=== PATIENT | male | born 1950 | race Caucasian/White ===

== ENCOUNTER → 2018-08-13 09:27 | Outpatient (CLI) | payer MEDICARE, OTHER, SELFPAY ==
--- NOTE | 2018-08-13 | CA_ITS ---
PROCEDURE: 2-D M-mode and color Doppler study INDICATIONS FOR THE TEST: Chest pain+ COPD+ Heart Murmur Tobacco Smokingex Palpitations+ Fatigue+ Syncope Edema+ Hypertension Diabetes Mellitus Rheumatic Fever SOB+AMADOR Obesity Hyperlipidemia Family History HD+ Additional History breaks out in cold sweats with no activity PATIENT INFORMATION HEIGHT: 70 WEIGHT: 235 GENDER: Male B/P: 170/60 2-D/M-MODE INTERPRETATION: 2-D MEASUREMENTS OBSERVED VALUES IN CMS Right Ventricular Dimension (RVDd) 2.0 Interventricular Septum (Thickness)(IVsd) 0.9 Left Ventricular Internal Dimensions(LVIDd) 4.8 Left Ventricular Posterior Wall (Thickness)(LVPWd) 1.0 Aortic Root 3.3 Aortic Cusp Separation 2.4 Left Atrial Dimensions (LAD) 4.5 2D 1. Technically difficult study because of the patient's factor and poor acoustic windows 2. Left atrium is mildly enlarged, left ventricle is normal size, there is no concentric left ventricular hypertrophy, visually estimated ejection fraction approximately 45%, there appears to be moderate hypokinesis involving the posterolateral wall. Repeat study with definitely contrast is recommended as endocardial surface of poorly visualized. 3. The right atrium and right ventricle are normal size and contractility. 4. The aortic valve is minimally thickened and fibrosed. 5. The mitral and tricuspid valvular grossly normal. 6. The pulmonic valve is poorly visualized. 7. No significant pericardial effusion noted. DOPPLER INTERROGATION: Doppler interrogation of the aortic, mitral and tricuspid valvular presence of mild mitral and tricuspid regurgitation, tricuspid regurgitation jet velocity is inadequate for calculation of the right ventricular systolic pressure, grade 1 diastolic dysfunction seen without tissue Doppler evidence of raised left atrial pressure. CONCLUSION: 1. Technically difficult because of the patient's factor and poor acoustic 2. Normal left ventricular size, there is no concentric left ventricular hypertrophy, visually estimated ejection fraction of 45% with segmental wall motion abnormality described above, a repeat study with Definity contrast is recommended. Grade 1 diastolic dysfunction seen without tissue Doppler evidence of raised left atrial pressure. 3. Mild mitral and tricuspid regurgitation 4. No significant pericardial effusion noted.
--- NOTE | 2018-08-13 09:34 | XR_ITS ---
XR chest 2V HISTORY: ITS.REASON: SOB,COPD ORDERING PHYSICIAN: Severino Gutierrez PATIENT AGE: 68 years COMPARISON: 01/23/2014 FINDINGS: The cardiomediastinal silhouette and pulmonary vascularity are within normal limits. There is some patchy density left lung base. This may be related to some chronic scarring. Underlying atelectasis or infiltrate is also a consideration. The remaining lungs are clear. There is some pleural thickening in the right lung base laterally.. Postsurgical changes of the right sixth and seventh ribs. COPD. Mild kyphosis. IMPRESSION: 1. COPD with postsurgical change. 2. Patchy density left lung base which may be due to an area of fibrosis, atelectasis, or patchy infiltrate. Follow-up suggested to confirm stability
== END ==
PROVIDERS: PCP Internal Medicine; Visit Provider Internal Medicine
DX: R06.02 Shortness of breath (principal); R60.9 Edema, unspecified; J44.9 Chronic obstructive pulmonary disease, unspecified
CPT/HCPCS: 71046; 93306; 94060

== ENCOUNTER → 2018-08-23 13:18 | Outpatient (CLI) | payer MEDICARE, OTHER, SELFPAY ==
--- NOTE | 2018-08-23 | CA_ITS ---
PROCEDURE: Limited contrast study INDICATIONS FOR THE TEST: Chest pain+ COPD Heart Murmur Tobacco Smoking Palpitations Fatigue Syncope Edema+ Hypertension Diabetes Mellitus Rheumatic Fever SOB+AMADOR Obesity Hyperlipidemia Family History HD Additional History DEFINITY ONLY PATIENT INFORMATION HEIGHT: 70 WEIGHT:235 GENDER: Male B/P:125/69 2-D/M-MODE INTERPRETATION: 2-D MEASUREMENTS OBSERVED VALUES IN CMS Right Ventricular Dimension (RVDd) Interventricular Septum (Thickness)(IVsd) Left Ventricular Internal Dimensions(LVIDd) Left Ventricular Posterior Wall (Thickness)(LVPWd) Aortic Root Aortic Cusp Separation Left Atrial Dimensions (LAD) 2D DOPPLER INTERROGATION: CONCLUSION: Doppler contractility gated the endocardial surfaces, over IS a left ventricular systolic function, there appears to be a discrete wall motion abnormality involving the anterolateral wall.
== END ==
PROVIDERS: PCP Internal Medicine; Visit Provider Internal Medicine
DX: R06.02 Shortness of breath (principal); J44.9 Chronic obstructive pulmonary disease, unspecified; R55 Syncope and collapse; R53.83 Other fatigue
CPT/HCPCS: 93306

== ENCOUNTER → 2018-09-14 07:38 | Outpatient (CLI) | payer MEDICARE, OTHER, SELFPAY ==
--- NOTE | 2018-09-14 07:44 | NM_ITS ---
History:Chest pain, SOB, Palpitations, Syncope, Fatigue, Abnormal ECHO Procedure: Patient received a 0.4 mg of intravenous Lexiscan, resting heart rate 72 bpm, resting blood pressure 152/85, with Lexiscan maximum heart rate achieve was 99 bpm which is less than85 % of the maximum predicted heart rate and blood pressure was 136/84. WIth Lexiscan patient denied any complained of chest pain. Electrocardiogram: Resting electrocardiogram showed sinus rhythm, with Lexiscan there is 1.5mm ST segment depression noted from the baseline EKG. The EKG portion of the Lexiscan Myoview is nondiagnostic. Cardias Stress and Resting SPECT images: Cardias Stress and Resting SPECT images were obtained using technetium 99m Myoview 32.6 mCi stress and 10.49 mCi at rest. Gated SPECT further analysis of segmental wall motion and calculation of ejection fraction also done. Cardiac stress and resting SPECT show uniform myocardial activity without segmental perfusion abnormality, the computer derived ejection fraction is 46% with no regional wall motion abnormality Conclusion: 1. The EKG portion of the Lexiscan Myoview is nondiagnostic. 2. No scintigraphic evidence of reversible ischemia seen, computer derived ejection fraction is 46% with no regional wall motion abnormality. 3. Normal Lexiscan Myoview study.
--- NOTE | 2018-09-14 08:37 | HMH.ITSHM ---
Current Home Medications as stated by this patient Jerrell Finley or sales representative meats. []OXYCODONE BREO PROAIR NEBULIZER LAXATIVE STOOL SOFTNER MULTIVITAMIN IBUPROFEN DEPO-TESTOSTERONE SUMATRIPTAN
== END ==
PROVIDERS: PCP Internal Medicine; Visit Provider Internal Medicine
DX: R07.9 Chest pain, unspecified (principal); R06.09 Other forms of dyspnea; R94.39 Abnormal result of other cardiovascular function study
CPT/HCPCS: 78452; 93017; A9502; J2785

== ENCOUNTER → 2019-07-27 09:41 | Outpatient (CLI) | payer MEDICARE, OTHER, SELFPAY ==
[2019-07-27 10:22] LABS: Basophils # 0.1 K/mm3 (0-0.2); Eosinophils # 0.1 K/mm3 (0.0-0.4); Lymphocytes # 1.5 K/mm3 (0.7-4.5); Mean Platelet Volume 7.1 fl (7.4-10.4); Monocytes # 0.4 K/mm3 (0.1-1.0)
[2019-07-27 10:38] LABS: Lymphocytes % 21.6 % (10-50); Mean Corpuscular HGB Conc 33.5 g/dL (31.8-35.4); Mean Corpuscular Hemoglobin 30.9 pg (27.0-31.2); Mean Corpuscular Volume 92.3 fl (80-94); Monocytes % 5.6 % (1.7-9.3); Neutrophils # 4.8 K/mm3 (1.8-7.8); Neutrophils % 69.8 % (37.0-80.0); Platelet Count 228 K/mm3 (142-424); Red Blood Count 6.73 M/mm3 (4.60-6.20); Red Cell Distribution Width 14.2 % (11.5-17.5); White Blood Count 6.9 K/mm3 (4.8-10.8)
[2019-07-27 10:42] LABS: Hematocrit 62.1 % (42.0-52.0); Hemoglobin 20.8 g/dL (14.1-18.0)
[2019-07-27 11:07] LABS: Alanine Aminotransferase 21 U/L (12-78); Albumin Level 4.7 g/dl (3.5-5.0); Albumin/Globulin Ratio 1.8 (1.1-1.8); Alkaline Phosphatase 64 U/L (38-126); Anion Gap 10.2 mEq/L (5-15); Aspartate Amino Transferase 28 U/L (17-59); Bilirubin,Total 0.5 mg/dl (0.2-1.3); Blood Urea Nitrogen 11 mg/dl (9-20); Calcium 9.1 mg/dl (8.4-10.2); Carbon Dioxide 34 mmol/L (22.0-30.0); Chloride 100 mmol/L (98-107); Chol/HDL Ratio 3.3 (1-3.5); Cholesterol 146 mg/dl (140-200); Estimated Glomerular Filt Rate 67 ml/min (>60); GFR (African American) 81 ML/MIN (>60); Globulin 2.6 g/dL (1.3-3.2); Glucose 97 mg/dl (74-100); HDL Cholesterol 44 mg/dl (40-60); Potassium 4.2 mmoL/L (3.5-5.1); Sodium 140 mmol/L (136-145); Total Protein,Serum 7.3 g/dl (6.3-8.2); Triglycerides 96 mg/dl (30-150); VLDL Cholesterol 19 mg/dL (0-40)
[2019-07-27 11:18] LABS: Direct LDL Cholesterol 108.98 mg/dL (100-129)
[2019-07-27 11:38] LABS: Prostate Specific Ag, Diagnost 2.89 ng/ml (0.0-4.0)
[2019-07-31 10:40] LABS: Testosterone,Free 14.1 pg/mL (6.6-18.1)
== END ==
PROVIDERS: Visit Provider Internal Medicine
DX: E78.5 Hyperlipidemia, unspecified (principal); J44.9 Chronic obstructive pulmonary disease, unspecified; N40.1 Benign prostatic hyperplasia with lower urinary tract symptoms
CPT/HCPCS: 36415; 80053; 80061; 84153; 84402; 85025

== ENCOUNTER 2019-07-29 13:30 | Outpatient (CLI) | payer MEDICARE, OTHER, SELFPAY | END 2019-07-29 14:30 | disposition home or self-care (01) | LOC: INF 13:41 | PROVIDERS: PCP Internal Medicine; Visit Provider Internal Medicine | DX: D75.1 Secondary polycythemia (principal); J44.9 Chronic obstructive pulmonary disease, unspecified | CPT/HCPCS: 99195 ==

== ENCOUNTER 2019-08-05 12:35 | Outpatient (CLI) | payer MEDICARE, OTHER, SELFPAY ==
[2019-08-05 12:37] VITALS: BMI 30.4
[2019-08-05 12:56] LABS: Hemoglobin 19.3 g/dL (14.1-18.0)
--- NOTE | 2019-08-05 14:37 | PC.NURSE ---
1320 BP 165/97, HR 88, temp 97.8, resp 18, O2 sat 100% room air. Therapeutic phlebotomy initiated per hatchery laborer. 1340 Therapeutic phlebotomy complete/ VSS, BP 125/83, HR 89, resp 18, O2 sat 99%, temp 97.8. Pt denies c/o. No problems noted. IV discontinued and pt discharged home/stable.
== END 2019-08-05 13:45 | disposition home or self-care (01) ==
LOC: INF 12:35
PROVIDERS: Visit Provider Internal Medicine
DX: D75.1 Secondary polycythemia (principal); J44.9 Chronic obstructive pulmonary disease, unspecified
CPT/HCPCS: 36415; 85014; 85018; 99195

== ENCOUNTER → 2019-08-09 11:07 | Outpatient (CLI) | payer MEDICARE, OTHER, SELFPAY | PROVIDERS: PCP Internal Medicine; Visit Provider Internal Medicine | DX: R06.02 Shortness of breath (principal); J44.9 Chronic obstructive pulmonary disease, unspecified | CPT/HCPCS: 94762 ==

== ENCOUNTER 2019-08-12 11:50 | Outpatient (CLI) | payer MEDICARE, OTHER, SELFPAY ==
[2019-08-12 11:55] VITALS: BMI 30.4
[2019-08-12 12:20] LABS: Hematocrit 53.9 % (42.0-52.0)
[2019-08-12 12:24] LABS: Hemoglobin 19.1 g/dL (14.1-18.0)
== END 2019-08-12 13:10 | disposition home or self-care (01) ==
LOC: INF 11:54
PROVIDERS: Visit Provider Internal Medicine
DX: D75.1 Secondary polycythemia (principal); J44.9 Chronic obstructive pulmonary disease, unspecified
CPT/HCPCS: 36415; 85014; 85018; 99195

== ENCOUNTER 2019-08-19 12:04 | Outpatient (CLI) | payer MEDICARE, OTHER, SELFPAY ==
[2019-08-19 12:04] VITALS: BMI 30.4
[2019-08-19 12:34] LABS: Hematocrit 53.1 % (42.0-52.0); Hemoglobin 18.6 g/dL (14.1-18.0)
[2019-08-19 12:50] VITALS: BP 143/86; PULSE 68; RESP 20; TEMP 36.9; O2SAT 95
[2019-08-19 13:35] VITALS: BP 145/74; PULSE 68; RESP 20; TEMP 36.9; O2SAT 95
== END 2019-08-19 13:35 | disposition home or self-care (01) ==
LOC: INF 12:04
PROVIDERS: Visit Provider Internal Medicine
DX: D75.1 Secondary polycythemia (principal); J44.9 Chronic obstructive pulmonary disease, unspecified
CPT/HCPCS: 85014; 85018; 99195

== ENCOUNTER 2019-08-26 10:43 | Outpatient (CLI) | payer MEDICARE, OTHER, SELFPAY ==
[2019-08-26 10:41] VITALS: BMI 30.4
[2019-08-26 11:05] LABS: Hematocrit 54.2 % (42.0-52.0)
[2019-08-26 11:06] LABS: Hemoglobin 18.5 g/dL (14.1-18.0)
[2019-08-26 11:20] VITALS: BP 120/88; PULSE 68; RESP 20; TEMP 36.9; O2SAT 95
[2019-08-26 11:55] VITALS: BP 128/82; PULSE 84; RESP 20
== END 2019-08-26 11:55 | disposition home or self-care (01) ==
LOC: INF 10:43
PROVIDERS: Visit Provider Internal Medicine
DX: D75.1 Secondary polycythemia (principal); J44.9 Chronic obstructive pulmonary disease, unspecified
CPT/HCPCS: 85014; 85018; 99195

== ENCOUNTER 2019-09-02 10:55 | Outpatient (CLI) | payer MEDICARE, OTHER, SELFPAY ==
[2019-09-02 10:59] VITALS: BMI 30.4
[2019-09-02 11:24] LABS: Hematocrit 52.2 % (42.0-52.0); Hemoglobin 17.6 g/dL (14.1-18.0)
== END 2019-09-02 12:25 | disposition home or self-care (01) ==
LOC: INF 10:57
PROVIDERS: Visit Provider Internal Medicine
DX: D75.1 Secondary polycythemia (principal); J44.9 Chronic obstructive pulmonary disease, unspecified
CPT/HCPCS: 36415; 85014; 85018; 99195

== ENCOUNTER 2019-09-09 10:19 | Outpatient (CLI) | payer MEDICARE, OTHER, SELFPAY ==
[2019-09-09 10:21] VITALS: BMI 30.7
[2019-09-09 10:41] LABS: Hematocrit 48.3 % (42.0-52.0); Hemoglobin 16.7 g/dL (14.1-18.0)
[2019-09-09 10:45] VITALS: BP 120/74; PULSE 83; RESP 18; TEMP 36.6; O2SAT 98
== END 2019-09-09 10:50 | disposition home or self-care (01) ==
LOC: INF 10:19
PROVIDERS: Visit Provider Internal Medicine
DX: D75.1 Secondary polycythemia (principal); J44.9 Chronic obstructive pulmonary disease, unspecified
CPT/HCPCS: 36415; 85014; 85018

== ENCOUNTER 2019-09-16 09:45 | Outpatient (CLI) | payer MEDICARE, OTHER, SELFPAY ==
[2019-09-16 09:51] VITALS: BMI 30.7
[2019-09-16 10:01] LABS: Hematocrit 53.3 % (42.0-52.0)
[2019-09-16 10:12] LABS: Hemoglobin 18.7 g/dL (14.1-18.0)
== END 2019-09-16 10:50 | disposition home or self-care (01) ==
LOC: INF 09:48
PROVIDERS: Visit Provider Internal Medicine
DX: J44.9 Chronic obstructive pulmonary disease, unspecified (principal)
CPT/HCPCS: 85014; 85018; 99195

== ENCOUNTER 2019-09-16 16:57 | Emergency (ER) | payer MEDICARE, OTHER, SELFPAY ==
--- NOTE | 2019-09-16 16:51 | ECG_ITS ---
APPROVED REPORT Exam: Resting ECG HR:109 bpm ECG Measurements Heart Rate 109 AXES [place] 140 P 56 QRSd 94 QRS 39 QT 332 T 49 QTc 447 <Conclusion> Sinus tachycardia Otherwise normal ECG Electronically signed by : Severino Gutierrez, 09/17/2019 08:44:54
[2019-09-16 16:59] VITALS: BP 142/100; PULSE 110; RESP 16; TEMP 36.6; O2SAT 98; BMI 30.7
--- NOTE | 2019-09-16 17:05 | XR_ITS ---
PROCEDURE: XR CHEST PORTABLE CLINICAL HISTORY: weakness COMPARISON: [facility] CT CHEST W/ CONTRAST from 06/27/2013 CXR CHEST(2 VIEWS-NOT PORTABLE) from 10/22/2013 CXR CHEST(2 VIEWS-NOT PORTABLE) from 12/22/2013 CXR CHEST(2 VIEWS-NOT PORTABLE) from 01/23/2014 FINDINGS: The cardiomediastinal silhouette and pulmonary vascularity are within normal limits. Surgical clips are present in the right midlung. Calcified granuloma left infrahilar region. Mild bibasilar atelectasis. No acute bony abnormalities. IMPRESSION: Mild bibasilar atelectasis Dictated by: Uday Burris MD 09/16/2019 17:25 Electronically signed by Uday Burris MD in [place] 09/16/2019 17:25
[2019-09-16 17:11] LABS: Basophils % 0.5 % (0.1-2.0); Eosinophils # 0.1 K/mm3 (0.0-0.4); Eosinophils % 1.3 % (0.1-12.0); Hematocrit 56.3 % (42.0-52.0); Lymphocytes # 2.1 K/mm3 (0.7-4.5); Mean Corpuscular HGB Conc 33.9 g/dL (31.8-35.4); Mean Corpuscular Hemoglobin 31.2 pg (27.0-31.2); Mean Corpuscular Volume 92.3 fl (80-94); Mean Platelet Volume 7.1 fl (7.4-10.4); Monocytes # 0.6 K/mm3 (0.1-1.0); Monocytes % 5.9 % (1.7-9.3); Neutrophils # 6.5 K/mm3 (1.8-7.8); Neutrophils % 70.3 % (37.0-80.0); Platelet Count 220 K/mm3 (142-424); Red Cell Distribution Width 12.8 % (11.5-17.5); White Blood Count 9.3 K/mm3 (4.8-10.8)
[2019-09-16 17:15] LABS: Hemoglobin 19.1 g/dL (14.1-18.0)
[2019-09-16 17:17] LABS: Anion Gap 14.2 mEq/L (5-15); Blood Urea Nitrogen 17 mg/dl (9-20); Calcium 8.7 mg/dl (8.4-10.2); Carbon Dioxide 31 mmol/L (22.0-30.0); Chloride 102 mmol/L (98-107); Creatinine Clearance Estimated 88 mL/min (50-200); Estimated Glomerular Filt Rate 67 ml/min (>60); GFR (African American) 81 ML/MIN (>60); Glucose 92 mg/dl (74-100); Potassium 4.2 mmoL/L (3.5-5.1); Sodium 143 mmol/L (136-145)
[2019-09-16 17:29] LABS: Troponin I < 0.01 ng/ml (0.00-0.034)
--- NOTE | 2019-09-16 19:01 | HMH.EDWEAK ---
ED Disposition Clinical Impression: Dehydration, Bronchitis Disposition: Home, Self-Care Condition on Discharge: Good Instructions: DI for Muscle Weakness, Acute Bronchitis Prescriptions: Azithromycin 250 mg PO DAILY 5 Days #6 tab Prescription Printed methylPREDNISolone [Medrol 4mg tab] 4 mg PO DIRECTED #21 tab Prescription Printed Referrals: Severino Gutierrez [Primary Care Provider] - - Critical Care Critical Care Time: No Attestation: On 09/16/19, the high probability of a clinically significant, sudden or life threatening deterioration of the following system(s) required my full and direct attention, intervention and personal management. The time I documented below is in addition to time spent performing reported procedures but includes the following listed in this critical care notation. Medical Decision Making - Medical Records Medical records reviewed: Yes: I reviewed the patient's medical records. - Kasi Inquiry Pt receiving controlled substance: No Vital Signs: 09/16/19 16:59 Temperature 98 F Temperature Source Oral Pulse Rate [Left Radial] 110 H Respiratory Rate 16 Blood Pressure [Right Arm] 142/100 H Blood Pressure Mean [Right Arm] 114 Blood Pressure Position [Right Arm] Sitting 02 Sat by Pulse Oximetry 98 Oxygen Delivery Method Room Air - Lab Data Lab results reviewed: Yes: I reviewed the patient's lab results. Lab Results 09/16/19 17:00: WBC 9.3, RBC 6.10, Hgb 19.1 H*, Hct 56.3 H, MCV 92.3, MCH 31.2, MCHC 33.9, RDW 12.8, Plt Count 220, MPV 7.1 L, Neut % (Auto) 70.3, Lymph % (Auto) 22.0, Mcdowell % (Auto) 5.9, Eos % (Auto) 1.3, Baso % (Auto) 0.5, Neut # (Auto) 6.5, Lymph # (Auto) 2.1, Mcdowell # (Auto) 0.6, Eos # (Auto) 0.1, Baso # (Auto) 0.0 09/16/19 17:00: Sodium 143, Potassium 4.2, Chloride 102, Carbon Dioxide 31 H, Anion Gap 14.2, BUN 17, Creatinine 1.10, Estimated Creat Clear 88, Estimated GFR 67, Est GFR ( Amer) 81, Glucose 92, Calcium 8.7, Troponin I < 0.01 Result diagrams: 09/16/19 17:00 09/16/19 17:00 Orders (Tests/Meds): ED MEDICATIONS Generic Name Dose Route Start Last Admin Trade Name Ariel PRN Reason Stop Dose Admin Sodium Chloride 1,000 mls @ 999 mls/hr 09/16/19 18:45 09/16/19 18:45 Sod Chlor 0.9% 1000ml Bag IV 09/16/19 19:45 999 mls/hr .Q1H1M CATHERINE Administration Ceftriaxone Sodium 1 gm/ 50 mls @ 100 mls/hr 09/16/19 19:00 Sodium Chloride IV 09/16/19 19:29 ONCE ONE Protocol ORDERS Category Date Time Status Troponin I Q3H Lab 09/16/19 20:15 Ordered Troponin I Q3H Lab 09/16/19 23:15 Ordered Urinalysis and Microscopic Stat Lab 09/16/19 17:04 Ordered - Radiology Data #1 Image(s): Chest Preliminary Findings: Abnormal (Mild atelectasis bibasilar) Weakness HPI - General Chief complaint: Weakness Stated complaint: weakness Time Seen by Provider: 09/16/19 19:01 Mode of Arrival: Ambulatory Limitations: No Limitations Description of Symptoms (Recalled from ER Triage Doc. by RN): to ed per pvt car with c/o generalized weakness, I just don't feel right pt states he had just had phlebotomy my blood is too thick pt c/o sob, denies any nausea, vomiting, chest pain, leg pain or sick contacts. - History of Present Illness HPI Narrative: 61-year-old male presents to the emergency department with just some generalized weakness. Patient does have polycythemia and does have frequent blood draws. Otherwise patient states he is at this, fatigue and mildly overt shortness of breath maybe for the last 3 or 4 days. He states he called his primary and his primary told to come to the emergency department become evaluated. Patient denies any pain. Patient denies any recent fever shakes or chills patient denies any malaise patient denies any cough but does have some mild shortness of breath. - Related Data Home Medications Medication Instructions Recorded Confirmed Albuterol Sulfate [Proair Hfa] 8.5 gm IH Q4HP
[2019-09-16 19:38] VITALS: BP 156/101; PULSE 91; RESP 16; TEMP 36.8; O2SAT 97
== END 2019-09-16 19:40 | disposition home or self-care (01) ==
PROVIDERS: Emergency Provider Family Medicine; PCP Internal Medicine
DX: E86.0 Dehydration (principal); J20.9 Acute bronchitis, unspecified; D75.1 Secondary polycythemia; Z79.899 Other long term (current) drug therapy
CPT/HCPCS: 71045; 80048; 84484; 85014; 85018; 85025; 93005; 96365; 96367; 99195; 99283

== ENCOUNTER 2019-09-23 09:59 | Outpatient (CLI) | payer MEDICARE, OTHER, SELFPAY ==
[2019-09-23 10:05] VITALS: BMI 30.7
[2019-09-23 10:24] LABS: Hematocrit 46.3 % (42.0-52.0); Hemoglobin 16.4 g/dL (14.1-18.0)
--- NOTE | 2019-09-23 11:02 | PC.NURSE ---
1020 H&H drawn per lab. Pt to receive therapeutic phlebotomy based on results.
--- NOTE | 2019-09-23 11:03 | PC.NURSE ---
1040 H&H 16.4/46.3 today, no therapeutic phlebotomy needed based on these results. patient will return Thu09/30/19
== END 2019-09-23 10:45 | disposition home or self-care (01) ==
LOC: INF 09:59
PROVIDERS: Visit Provider Internal Medicine
DX: D75.1 Secondary polycythemia (principal); Z51.81 Encounter for therapeutic drug level monitoring; Z79.01 Long term (current) use of anticoagulants
CPT/HCPCS: 85014; 85018

== ENCOUNTER 2019-09-30 10:00 | Outpatient (CLI) | payer MEDICARE, OTHER, SELFPAY ==
[2019-09-30 10:10] VITALS: BMI 30.7
[2019-09-30 10:26] LABS: Hematocrit 46.7 % (42.0-52.0); Hemoglobin 16.4 g/dL (14.1-18.0)
== END 2019-09-30 10:35 | disposition home or self-care (01) ==
LOC: INF 10:06
PROVIDERS: Visit Provider Internal Medicine
DX: D75.1 Secondary polycythemia (principal); J44.9 Chronic obstructive pulmonary disease, unspecified
CPT/HCPCS: 85014; 85018

== ENCOUNTER 2019-10-17 09:08 | Outpatient (CLI) | payer MEDICARE, OTHER, SELFPAY ==
[2019-10-17 09:11] VITALS: BMI 30.7
--- NOTE | 2019-10-17 09:24 | PC.NURSE ---
adelfo from lab at chair side with pt to draw labs as ordered per md today for possible phlebotomy. will await results to assess course of action for today.
[2019-10-17 09:26] LABS: Hematocrit 49.4 % (42.0-52.0)
== END 2019-10-17 09:31 | disposition home or self-care (01) ==
LOC: INF 09:08
PROVIDERS: PCP Internal Medicine; Visit Provider Internal Medicine
DX: Z51.81 Encounter for therapeutic drug level monitoring (principal)
CPT/HCPCS: 36415; 85014; 85018

== ENCOUNTER 2019-11-11 09:41 | Outpatient (CLI) | payer MEDICARE, OTHER, SELFPAY ==
[2019-11-11 09:43] VITALS: BMI 30.7
[2019-11-11 09:56] LABS: Hematocrit 46.7 % (42.0-52.0); Hemoglobin 16.3 g/dL (14.1-18.0)
--- NOTE | 2019-11-11 10:06 | PC.NURSE ---
1006-pt here for labs for possible therapeutic phlebotomy; pt's hct level 46.7; phlebotomy not needed today; pt will return in a month for repeat labs.
== END 2019-11-11 10:06 | disposition home or self-care (01) ==
LOC: INF 09:41
PROVIDERS: Visit Provider Internal Medicine
DX: D75.1 Secondary polycythemia (principal); J44.9 Chronic obstructive pulmonary disease, unspecified
CPT/HCPCS: 85014; 85018

== ENCOUNTER 2019-12-15 10:02 | Outpatient (CLI) | payer MEDICARE, OTHER, SELFPAY ==
[2019-12-15 10:02] VITALS: BMI 30.4
[2019-12-15 10:25] LABS: Hematocrit 47.6 % (42.0-52.0); Hemoglobin 15.8 g/dL (14.1-18.0)
--- NOTE | 2019-12-15 10:45 | PC.NURSE ---
PTCAME IN TODAY FOR LABS; HGB AND HCT WERE CHECKED AND HGB WAS 47.6. PT DID NOT NEED PHLEBOTOMY TODAY. PT WILL RETURN TO US IN TWO MONTHS.
[2019-12-15 11:00] VITALS: BP 122/74; PULSE 68; RESP 20; TEMP 36.9; O2SAT 95
== END 2019-12-15 11:10 | disposition home or self-care (01) ==
LOC: INF 10:02
PROVIDERS: Visit Provider Internal Medicine
DX: D75.1 Secondary polycythemia (principal)
CPT/HCPCS: 36415; 85014; 85018

== ENCOUNTER 2020-01-12 11:58 | Outpatient (CLI) | payer MEDICARE, OTHER, SELFPAY ==
[2020-01-12 12:00] VITALS: BMI 30.7
[2020-01-12 12:16] LABS: Hematocrit 48.6 % (42.0-52.0); Hemoglobin 16.3 g/dL (14.1-18.0)
--- NOTE | 2020-01-12 13:01 | PC.NURSE ---
1212 H&H collected at this time. 1230 Received H&H results at this time, Hgb 16.3, Hct 48.6. Pt does not need therapeutic phlebotomy today based on standing MD orders to phlebotomize until Hct down to 50. Pt discharged home
== END 2020-01-12 12:35 | disposition home or self-care (01) ==
LOC: INF 11:58
PROVIDERS: PCP Internal Medicine; Visit Provider Internal Medicine
DX: D75.1 Secondary polycythemia (principal)
CPT/HCPCS: 85014; 85018

== ENCOUNTER → 2020-01-17 09:50 | Outpatient (CLI) | payer MEDICARE, OTHER, SELFPAY ==
--- NOTE | 2020-01-17 09:57 | XR_ITS ---
PROCEDURE: XR CHEST 2V CLINICAL HISTORY: SOB- chronic COMPARISON: CR CXR CHEST(2 VIEWS-NOT PORTABLE) from 10/22/2013 CR CXR CHEST(2 VIEWS-NOT PORTABLE) from 12/22/2013 CR CXR CHEST(2 VIEWS-NOT PORTABLE) from 01/23/2014 CR XR CHEST PORTABLE from 09/16/2019 FINDINGS: The cardiomediastinal silhouette and pulmonary vascularity are within normal limits. The lungs are clear without infiltrates, suspicious nodules, or pleural effusions. There postsurgical changes on the right with fusion of the superior and posterior aspect of the right 5th and 6th ribs. Surgical clips are present at these areas. There are mild atelectatic changes in the left lung base. There are mild degenerative changes in the thoracic spine IMPRESSION: Postsurgical changes, no acute finding Dictated by: Uday Burris MD 01/17/2020 15:57 Uday Burris MD in [place] 01/17/2020 15:57
--- NOTE | 2020-01-17 12:22 | PC.NURSE ---
PFT completed without complications. Albuterol 0.083% given via hand held nebulizer, Pt tolerated well.
== END ==
PROVIDERS: PCP Internal Medicine; Visit Provider Otolaryngology
DX: J43.9 Emphysema, unspecified; J38.1 Polyp of vocal cord and larynx; R49.0 Dysphonia
CPT/HCPCS: 71046; 94060; 94726; 94729

== ENCOUNTER → 2020-01-24 10:48 | Outpatient (CLI) | payer MEDICARE, OTHER, SELFPAY ==
[2020-01-24 11:16] LABS: Basophils % 0.8 % (0.1-2.0); Eosinophils # 0.1 K/mm3 (0.0-0.4); Eosinophils % 2.4 % (0.1-12.0); Hematocrit 50.5 % (42.0-52.0); Hemoglobin 17.1 g/dL (14.1-18.0); Lymphocytes % 35.9 % (10-50); Mean Corpuscular HGB Conc 33.8 g/dL (31.8-35.4); Mean Corpuscular Volume 88.7 fl (80-94); Mean Platelet Volume 8.5 fl (7.4-10.4); Monocytes # 0.4 K/mm3 (0.1-1.0); Monocytes % 6.8 % (1.7-9.3); Platelet Count 245 K/mm3 (142-424); Red Blood Count 5.69 M/mm3 (4.60-6.20); Red Cell Distribution Width 13.7 % (11.5-17.5); White Blood Count 5.6 K/mm3 (4.8-10.8)
[2020-01-24 12:43] LABS: Coronavirus 19 IgG Antibody Negative (Negative); Coronavirus 19 IgM Antibody Negative (Negative)
== END ==
PROVIDERS: Visit Provider Otolaryngology
DX: Z01.818 Encounter for other preprocedural examination (principal); R49.0 Dysphonia; J04.0 Acute laryngitis; J43.9 Emphysema, unspecified
CPT/HCPCS: 36415; 85025; 86328

== ENCOUNTER 2020-01-26 06:36 | Day surgery (SDC) | payer MEDICARE, OTHER, SELFPAY ==
[2020-01-24 12:15] VITALS: BMI 30.9
[2020-01-26] VITALS (11 sets, daily range): BP systolic 116–132; BP diastolic 67–92; PULSE 82–103; RESP 15–25; TEMP 36.1–36.6; O2SAT 95–98
--- NOTE | 2020-01-26 09:08 | HMH.OPNOTE ---
Date of procedure: 01/26/20 Pre-op Diagnosis:: 1. Hoarseness 2. Possible polyp right vocal cord Post-op Diagnosis:: 1. Hoarseness 2. Leukoplakia right vocal cord Procedure performed:: Microlaryngoscopy with biopsy of right vocal cord Surgeon:: Kang Anne MD SPINAL SURGEON:: Damian Lockwood Anesthesia: GETA Estimated blood loss (mL): 1 Operative findings:: Same Operative note:: With the patient under general anesthetic the SlimLine anterior commissure laryngoscope was introduced, and the larynx and hypopharynx were examined. There was leukoplakia involving the posterior third of the right vocal cord as well as the anterior third of the right vocal cord. The left vocal cord was normal. No other abnormalities were identified. Using the microlaryngeal cup forceps 2 biopsies were taken from the leukoplakia and submitted. Bleeding was less than 1 cc and stopped with topical epinephrine cottonoids. The patient tolerated the procedure well and was sent to recovery in good general condition. Dr. Kang Anne Condition: stable Disposition: PACU Complications:: none
--- NOTE | 2020-01-26 09:13 | HMH.ANESCL ---
[facility] Anesthesia Checklist - Patient Identification Patient Identification: Arm Band - Structural Data Admitted From: Home Planned Operative Procedure/s: microlaryngoscopy Consent for Planned Operative Procedure(s) Verified: Yes Verified Documents: Surgical Consent, History and Physical - NPO Status Verified Time NPO: 00:00 - Additional verifications Anesthesia Reactions: No Hx Blood Transfusions: No - Airway Assessment C-Spine Mobility Assessed: Yes TMJ Mobility Assessed: Yes Dentition: Good Dentition (lower. Upper dentures) - Neurological Assessment Level of Consciousness: Awake, Alert - Anesthesia Plan Anesthesia Risk discussed: Yes Anesthesia Plan: Verified ASA Class: III Anesthesia Type: General [facility] History I have reviewed the patient's past medical history: Yes Medical History: Reports:: Chronic Obstructive Pulmonary Disease (COPD) Denies:: Cancer, Diabetes Mellitus Type 1, Diabetes Mellitus Type 2, Internal Pacemaker, MRSA, Seizures *Have you ever received a pneumonia vaccine?: Yes *Have you received a flu vaccine this season?: Yes Anesthesia experience/problems:: nac Laterality Cases: Right: Other Other Surgeries: Yes: Cholecystectomy, Colonoscopy, EGD, Other. No: Pacemaker Amputation: No Fractures: Yes (T10,11,12; LEFT WRIST, ribs) - *Social History Last grade of school completed: High school graduate Smoking Status: Never smoker Alcohol Intake: current Alcohol Intake Frequency:: a few times a month Substance Use Type: denies use *Occupational Status:: retired Housing: house Household Members: none *Travel in the last 8 weeks: None Family Hx:: Non-contributory
--- NOTE | 2020-01-26 09:14 | P.PN_ITS ---
[facility] Anesthesia Record Part I Intake, IV Amount: 600 Estimated blood loss (mL): 0 Urine output (mL): 0 Blood Pressure: 132/92 SaO2: 98 Pulse Rate: 98 Respiratory Rate: 16 Temperature: 97 F Patient is:: Drowsy, Stable Stable to PACU at:: 09:10
--- NOTE | 2020-01-26 17:44 | HMH.ANESII ---
[facility] Anesthesia Record Part II Discharge Time: 09:40 Destination: Surgical Day Care (OP Surgery) PACU nurse assessment reviewed?: Yes Patient Condition:: Good Anesthesia Complications:: None Swallowing reflex intact?: Yes Cyanosis?: No Blood Pressure: 116/87 Pulse Rate: 82 Temperature: 97.0 F Mental Status: Alert & Oriented Pain level:: 5 Nausea and/or vomitting:: None Intake, IV Amount: 0
== END 2020-01-26 10:16 | disposition home or self-care (01) ==
LOC: OR 06:39
PROVIDERS: PCP Internal Medicine; Visit Provider Otolaryngology
PROC: 0CJS8ZZ Inspection of Larynx, Via Natural or Artificial Opening Endoscopic (ICD-10-PCS; CPT 31536; principal; 2020-01-26 08:15)
DX: R49.0 Dysphonia (principal); J38.3 Other diseases of vocal cords; J44.9 Chronic obstructive pulmonary disease, unspecified; Z79.899 Other long term (current) drug therapy
CPT/HCPCS: 31536; 88305; 96374; 96375; J2405

== ENCOUNTER 2020-03-16 09:57 | Outpatient (CLI) | payer MEDICARE, OTHER, SELFPAY ==
[2020-03-16 10:01] VITALS: BMI 31.7
[2020-03-16 10:29] LABS: Hematocrit 49.7 % (42.0-52.0); Hemoglobin 17.5 g/dL (14.1-18.0)
--- NOTE | 2020-03-16 10:49 | PC.NURSE ---
1020 H&H collected and sent to lab. 1035 H&H 17.5/49.7, pt does not need therapeutic phlebotomy today based on ordered parameters. Next appt scheduled for Thu05/14/20 at 10:00am
== END 2020-03-16 10:48 | disposition home or self-care (01) ==
LOC: INF 09:57
PROVIDERS: Visit Provider Internal Medicine
DX: D75.1 Secondary polycythemia (principal)
CPT/HCPCS: 85014; 85018

== ENCOUNTER → 2020-04-13 09:21 | Outpatient (CLI) | payer MEDICARE, OTHER, SELFPAY ==
--- NOTE | 2020-04-13 09:48 | ECG_ITS ---
APPROVED REPORT Exam: Resting ECG HR:123 bpm ECG Measurements Heart Rate 123 AXES [place] 148 P 38 QRSd 96 QRS 18 QT 336 T 29 QTc 481 Conclusion Sinus tachycardia Otherwise normal ECG Electronically signed by : Severino Gutierrez, 04/13/2020 09:51:00
== END ==
PROVIDERS: PCP Internal Medicine; Visit Provider Internal Medicine
DX: R00.0 Tachycardia, unspecified (principal)
CPT/HCPCS: 93005

== ENCOUNTER 2020-05-14 09:41 | Outpatient (CLI) | payer MEDICARE, OTHER, SELFPAY ==
[2020-05-14 09:43] VITALS: BMI 33.0
[2020-05-14 10:13] LABS: Basophils % 1.2 % (0.1-2.0); Eosinophils # 0.1 K/mm3 (0.0-0.4); Eosinophils % 2.2 % (0.1-12.0); Hematocrit 44.9 % (42.0-52.0); Hemoglobin 15.3 g/dL (14.1-18.0); Lymphocytes # 1.2 K/mm3 (0.7-4.5); Mean Corpuscular Hemoglobin 29.9 pg (27.0-31.2); Mean Corpuscular Volume 88.1 fl (80-94); Mean Platelet Volume 7.4 fl (7.4-10.4); Monocytes # 0.3 K/mm3 (0.1-1.0); Monocytes % 8.8 % (1.7-9.3); Neutrophils # 2.2 K/mm3 (1.8-7.8); Neutrophils % 56.8 % (37.0-80.0); Platelet Count 179 K/mm3 (142-424); Red Cell Distribution Width 13.5 % (11.5-17.5); White Blood Count 3.8 K/mm3 (4.8-10.8)
--- NOTE | 2020-05-14 10:25 | PC.NURSE ---
1025-pt doesn't need phlebotomy today his hct is 44.6; pt will return in august for lab recheck.
== END 2020-05-14 10:25 | disposition home or self-care (01) ==
LOC: INF 09:41
PROVIDERS: Visit Provider Internal Medicine
DX: D75.1 Secondary polycythemia (principal)
CPT/HCPCS: 85025

== ENCOUNTER 2020-09-12 09:50 | Outpatient (CLI) | payer MEDICARE, OTHER, SELFPAY ==
[2020-09-12 10:02] VITALS: BMI 32.3
--- NOTE | 2020-09-12 10:25 | PC.NURSE ---
1025- lab at bedside for blood draw at this time.
[2020-09-12 10:49] LABS: Basophils % 0.6 % (0.1-2.0); Eosinophils # 0.2 K/mm3 (0.0-0.4); Eosinophils % 2.7 % (0.1-12.0); Hematocrit 45.3 % (42.0-52.0); Hemoglobin 15.8 g/dL (14.1-18.0); Lymphocytes # 1.5 K/mm3 (0.7-4.5); Lymphocytes % 27.2 % (10-50); Mean Corpuscular HGB Conc 34.9 g/dL (31.8-35.4); Mean Platelet Volume 7.7 fl (7.4-10.4); Monocytes # 0.3 K/mm3 (0.1-1.0); Monocytes % 5.8 % (1.7-9.3); Neutrophils # 3.5 K/mm3 (1.8-7.8); Neutrophils % 63.7 % (37.0-80.0); Platelet Count 211 K/mm3 (142-424); Red Blood Count 5.27 M/mm3 (4.60-6.20); Red Cell Distribution Width 13.4 % (11.5-17.5); White Blood Count 5.5 K/mm3 (4.8-10.8)
--- NOTE | 2020-09-12 10:50 | PC.NURSE ---
labs reviewed. pt doesnt need therapeutic phlebotomy at this time.
== END 2020-09-12 10:55 | disposition home or self-care (01) ==
LOC: INF 10:02
PROVIDERS: PCP Internal Medicine; Visit Provider Internal Medicine
DX: D75.1 Secondary polycythemia (principal)
CPT/HCPCS: 85025

== ENCOUNTER → 2020-09-18 09:50 | Outpatient (CLI) | payer MEDICARE, OTHER, SELFPAY ==
--- NOTE | 2020-09-18 | ECG_ITS ---
APPROVED REPORT Exam: Resting ECG HR:92 bpm ECG Measurements Heart Rate 92 AXES [place] 140 P 49 QRSd 94 QRS 51 QT 374 T 5 QTc 462 Conclusion Normal sinus rhythm Normal ECG Electronically signed by : Severino Gutierrez, 09/18/2020 16:44:19
--- NOTE | 2020-09-18 10:16 | XR_ITS ---
PROCEDURE: XR CHEST 2V CLINICAL HISTORY: S/P CHEST PAIN EPISODES X2,WEAKNESS COMPARISON: CT [facility] CT CHEST W/ CONTRAST from 06/27/2013 CR CXR CHEST(2 VIEWS-NOT PORTABLE) from 01/23/2014 CR XR CHEST PORTABLE from 09/16/2019 DX XR CHEST 2V from 01/17/2020 FINDINGS: The heart size is normal. There is increased density in the left infrahilar region which may be related to summation density of the overlying rib and the adjacent calcified granuloma somewhat similar in appearance to the previous exam. Stability may be confirmed with follow-up. Surgical clips are present overlying the upper chest on the right. There is some patchy density in the left lung base suggesting a faint area of atelectasis or infiltrate with some superimposed chronic change.. There is some deformity of the right 6th and 7th ribs posteriorly and may be related to postsurgical changes. Kyphosis of the lower thoracic spine not significantly changed. IMPRESSION: Faint patchy density in the left lung base suggesting an area of atelectasis or infiltrate with some superimposed chronic change at this area. Dictated by: Uday Burris MD 09/18/2020 10:45 Uday Burris MD in [place] 09/18/2020 10:45
[2020-09-18 10:21] LABS: Basophils % 0.5 % (0.1-2.0); Eosinophils # 0.1 K/mm3 (0.0-0.4); Eosinophils % 2.7 % (0.1-12.0); Hematocrit 46.7 % (42.0-52.0); Hemoglobin 15.5 g/dL (14.1-18.0); Lymphocytes # 1.4 K/mm3 (0.7-4.5); Lymphocytes % 25.7 % (10-50); Mean Corpuscular HGB Conc 33.3 g/dL (31.8-35.4); Mean Corpuscular Hemoglobin 29.5 pg (27.0-31.2); Mean Corpuscular Volume 88.7 fl (80-94); Mean Platelet Volume 6.8 fl (7.4-10.4); Monocytes # 0.3 K/mm3 (0.1-1.0); Monocytes % 5.4 % (1.7-9.3); Neutrophils # 3.5 K/mm3 (1.8-7.8); Neutrophils % 65.7 % (37.0-80.0); Platelet Count 217 K/mm3 (142-424); Red Blood Count 5.27 M/mm3 (4.60-6.20); Red Cell Distribution Width 12.8 % (11.5-17.5); White Blood Count 5.3 K/mm3 (4.8-10.8)
[2020-09-18 10:28] LABS: Chloride 103 mmol/L (98-107); Potassium 4.3 mmoL/L (3.5-5.1); Sodium 141 mmol/L (136-145)
[2020-09-18 10:31] LABS: Alanine Aminotransferase 20 U/L (12-78); Albumin Level 4.7 g/dl (3.5-5.0); Albumin/Globulin Ratio 1.7 (1.1-1.8); Alkaline Phosphatase 90 U/L (38-126); Anion Gap 12.3 mEq/L (5-15); Aspartate Amino Transferase 32 U/L (17-59); Bilirubin,Total 0.5 mg/dl (0.2-1.3); Blood Urea Nitrogen 15 mg/dl (9-20); Carbon Dioxide 30 mmol/L (22.0-30.0); Creatine Kinase 81 U/L (55-170); Estimated Glomerular Filt Rate 84 ml/min (>60); GFR (African American) 101 ML/MIN (>60); Globulin 2.8 g/dL (1.3-3.2); Glucose 105 mg/dl (74-100); Total Protein,Serum 7.5 g/dl (6.3-8.2)
[2020-09-18 10:41] LABS: CKMB Relative Index 1.6 U/L (0-4.0); Creatine Kinase MB 1.3 ng/ml (0.0-2.03)
[2020-09-18 10:45] LABS: Troponin I < 0.01 ng/ml (0.00-0.034)
== END ==
PROVIDERS: Visit Provider Internal Medicine
DX: R07.9 Chest pain, unspecified (principal); R53.1 Weakness
CPT/HCPCS: 36415; 71046; 80053; 82550; 82553; 84484; 85025; 93005

== ENCOUNTER 2021-01-21 09:38 | Outpatient (CLI) | payer MEDICARE, OTHER, SELFPAY ==
[2021-01-21 09:54] VITALS: BMI 32.3
[2021-01-21 10:17] LABS: Basophils % 0.5 % (0.1-2.0); Eosinophils # 0.2 K/mm3 (0.0-0.4); Eosinophils % 4.4 % (0.1-12.0); Lymphocytes # 1.6 K/mm3 (0.7-4.5); Mean Corpuscular HGB Conc 35.5 g/dL (31.8-35.4); Mean Corpuscular Hemoglobin 30.4 pg (27.0-31.2); Mean Corpuscular Volume 85.8 fl (80-94); Mean Platelet Volume 7.3 fl (7.4-10.4); Monocytes # 0.3 K/mm3 (0.1-1.0); Monocytes % 6.5 % (1.7-9.3); Neutrophils # 2.9 K/mm3 (1.8-7.8); Neutrophils % 56.5 % (37.0-80.0); Platelet Count 240 K/mm3 (142-424); Red Blood Count 5.25 M/mm3 (4.60-6.20); Red Cell Distribution Width 13.3 % (11.5-17.5); White Blood Count 5.1 K/mm3 (4.8-10.8)
--- NOTE | 2021-01-21 15:25 | PC.NURSE ---
1030 Hct 45.0/ patient does not need therapeutic phlebotomy today based upon today's lab result per standing order.
== END 2021-01-21 10:30 | disposition home or self-care (01) ==
LOC: INF 09:39
PROVIDERS: PCP Internal Medicine; Visit Provider Internal Medicine
DX: D75.1 Secondary polycythemia (principal)
CPT/HCPCS: 36415; 85025

== ENCOUNTER → 2021-01-28 10:04 | Outpatient (CLI) | payer MEDICARE, OTHER, SELFPAY ==
--- NOTE | 2021-01-28 10:08 | XR_ITS ---
PROCEDURE: XR CHEST 2V CLINICAL HISTORY: RT LATERAL CHEST PAIN,COPD COMPARISON: CT [facility] CT CHEST W/ CONTRAST from 06/27/2013 CR XR CHEST PORTABLE from 09/16/2019 DX XR CHEST 2V from 01/17/2020 CR XR CHEST 2V from 09/18/2020 FINDINGS: The cardiomediastinal silhouette and pulmonary vascularity are within normal limits. Postsurgical changes are present in the right upper lobe. There is minimal chronic blunting of the right CP angle and chronic change in the left lung base. Rib deformities noted involving the right 6th and 7th ribs from the previous surgery. Kyphosis of the thoracic spine degenerative changes IMPRESSION: No change no acute finding Dictated by: Uday Burris MD 01/28/2021 10:23 Uday Burris MD in [place] 01/28/2021 10:23
== END ==
PROVIDERS: PCP Internal Medicine; Visit Provider Internal Medicine
DX: R07.89 Other chest pain (principal); J44.9 Chronic obstructive pulmonary disease, unspecified
CPT/HCPCS: 71046

== ENCOUNTER → 2021-05-14 08:37 | Outpatient (CLI) | payer MEDICARE, OTHER, SELFPAY ==
--- NOTE | 2021-05-14 08:42 | XR_ITS ---
FINAL REPORT CLINICAL HISTORY: PAIN X 1 YEAR, NKI FINDINGS: RIGHT FOOT 3 views were obtained. There is no acute fracture or dislocation. The joint spaces are intact. There is a moderate plantar spur. There is no soft tissue abnormality. IMPRESSION: No acute bony abnormality. Reviewed, Interpreted and Dictated by Robe Mark MD Transcribed by Shelly Dunham Authenticated by Robe Mark MD on 05/14/2021 11:27:06 AM [facility]
--- NOTE | 2021-05-14 08:42 | XR_ITS ---
FINAL REPORT CLINICAL HISTORY: PAIN FINDINGS: LEFT FOOT 3 views were obtained. There is no acute fracture or dislocation. The joint spaces are intact. There is a moderate plantar spur. There is no soft tissue abnormality. IMPRESSION: No acute bony abnormality. Reviewed, Interpreted and Dictated by Robe Mark MD Transcribed by Shelly Dunham Authenticated by Robe Mark MD on 05/14/2021 11:26:21 AM [facility]
== END ==
PROVIDERS: PCP Internal Medicine; Visit Provider Podiatrist
DX: M79.672 Pain in left foot (principal); M79.671 Pain in right foot
CPT/HCPCS: 73630

== ENCOUNTER → 2022-03-12 15:22 | Outpatient (CLI) | payer MEDICARE, SELFPAY ==
--- NOTE | 2022-03-12 15:32 | XR_ITS ---
FINAL REPORT CLINICAL HISTORY: COPD EXACERBATION COMPARISON: 01/28/2021 FINDINGS: PA and lateral views of the chest were obtained. The cardiac and mediastinal silhouettes are within normal limits. Postsurgical changes in the right lung appear stable. There is lingular and right middle lobe atelectasis or scarring. The lungs are otherwise clear. There is no pleural effusion or pneumothorax. No acute osseous abnormality is identified. IMPRESSION: Lingular and right middle lobe atelectasis or scarring. Reviewed, Interpreted and Dictated by Meghana Baer MD Transcribed by Rhonda Siegel Authenticated and [facility]
== END ==
PROVIDERS: PCP Internal Medicine; Visit Provider Internal Medicine
DX: Z20.822 Contact with and (suspected) exposure to COVID-19 (principal); J44.1 Chronic obstructive pulmonary disease with (acute) exacerbation
CPT/HCPCS: 71046; C9803; U0003; U0005

== ENCOUNTER → 2022-05-16 09:39 | Outpatient (CLI) | payer MEDICARE, SELFPAY ==
--- NOTE | 2022-05-16 09:45 | XR_ITS ---
FINAL REPORT CLINICAL HISTORY: KNEE INJURY 05/05/22, pain FINDINGS: LEFT KNEE 3 views of the left knee were obtained. There is no acute fracture or dislocation. Visualized joint spaces are normally aligned. Soft tissues are unremarkable. IMPRESSION: No acute bony abnormality. Reviewed, Interpreted and Dictated by Robe Mark MD Transcribed by Vonda Kent Authenticated and [facility]
== END ==
PROVIDERS: PCP Internal Medicine; Visit Provider Internal Medicine
DX: M25.562 Pain in left knee (principal); S89.92XA Unspecified injury of left lower leg, initial encounter
CPT/HCPCS: 73562

== ENCOUNTER 2022-05-30 11:15 | Outpatient (RCR) | payer MEDICARE, SELFPAY | END 2022-05-30 12:30 | disposition home or self-care (01) | LOC: PT 11:15 | PROVIDERS: Visit Provider Orthopaedic Surgery | DX: M25.562 Pain in left knee (principal) ==

== ENCOUNTER → 2022-06-05 08:26 | Outpatient (CLI) | payer MEDICARE, SELFPAY ==
--- NOTE | 2022-06-05 08:27 | MR_ITS ---
FINAL REPORT CLINICAL HISTORY: knee pain. PAIN INFERIOR TO PATELLA. KNEE INSTABILITY. FINDINGS: Multiplanar MR imaging of the right knee was performed without contrast. There is a tear of the posterior horn of the medial meniscus. The lateral meniscus appears intact. The anterior and posterior cruciate ligaments are intact. The medial collateral ligament and lateral ligamentous complex are intact. The patellar and quadriceps tendons are intact. There is bone marrow edema of the medial tibial plateau. No focal abnormality is identified of the articular cartilage. A moderate joint effusion is seen. The musculature is intact. There is a small popliteal cyst. IMPRESSION: Tear of the posterior horn of the medial meniscus. Bone marrow edema of the medial tibial plateau. Moderate joint effusion and small popliteal cyst. Reviewed, Interpreted and Dictated by Carlos Bullock III, MD Transcribed by Aretha Powell Authenticated and [facility]
== END ==
PROVIDERS: PCP Internal Medicine; Visit Provider Orthopaedic Surgery
DX: M25.462 Effusion, left knee (principal); M25.562 Pain in left knee
CPT/HCPCS: 73721

== ENCOUNTER → 2022-08-27 09:20 | Outpatient (CLI) | payer MEDICARE, SELFPAY ==
[2022-08-27 09:49] LABS: Basophils % 0.4 % (0.1-2.0); Eosinophils # 0.2 K/mm3 (0.0-0.4); Eosinophils % 3.8 % (0.1-12.0); Hematocrit 46.6 % (42.0-52.0); Hemoglobin 15.6 g/dL (14.1-18.0); Lymphocytes # 1.7 K/mm3 (0.7-4.5); Lymphocytes % 30.6 % (10-50); Mean Corpuscular HGB Conc 33.6 g/dL (31.8-35.4); Mean Corpuscular Volume 86.3 fl (80-94); Mean Platelet Volume 7.6 fl (7.4-10.4); Monocytes # 0.4 K/mm3 (0.1-1.0); Monocytes % 6.4 % (1.7-9.3); Neutrophils # 3.3 K/mm3 (1.8-7.8); Neutrophils % 58.7 % (37.0-80.0); Platelet Count 244 K/mm3 (142-424); Red Blood Count 5.39 M/mm3 (4.60-6.20); Red Cell Distribution Width 13.3 % (11.5-17.5); White Blood Count 5.6 K/mm3 (4.8-10.8)
[2022-08-27 10:12] LABS: Alanine Aminotransferase 24 U/L (12-78); Albumin Level 4.3 g/dl (3.5-5.0); Albumin/Globulin Ratio 1.8 (1.1-1.8); Alkaline Phosphatase 101 U/L (38-126); Anion Gap 13.9 mEq/L (5-15); Aspartate Amino Transferase 31 U/L (17-59); Bilirubin,Total 0.3 mg/dl (0.2-1.3); Blood Urea Nitrogen 11 mg/dl (9-20); Calcium 9.1 mg/dl (8.4-10.2); Carbon Dioxide 29 mmol/L (22.0-30.0); Chloride 102 mmol/L (98-107); Chol/HDL Ratio 5.1 (1-3.5); Cholesterol 163 mg/dl (140-200); Estimated Glomerular Filt Rate 83 ml/min (>60); GFR (African American) 101 ML/MIN (>60); Globulin 2.4 g/dL (1.3-3.2); Glucose 111 mg/dl (74-100); HDL Cholesterol 32 mg/dl (40-60); Potassium 3.9 mmoL/L (3.5-5.1); Sodium 141 mmol/L (136-145); Total Protein,Serum 6.7 g/dl (6.3-8.2); Triglycerides 250 mg/dl (30-150); VLDL Cholesterol 50 mg/dL (0-40)
[2022-08-27 10:23] LABS: Direct LDL Cholesterol 89.91 mg/dL (100-129)
[2022-08-27 10:43] LABS: Prostate Specific Ag Screen 1.9 ng/ml (0.0-4.0)
== END ==
PROVIDERS: PCP Internal Medicine; Visit Provider Internal Medicine
DX: J44.9 Chronic obstructive pulmonary disease, unspecified (principal); R07.81 Pleurodynia; D75.1 Secondary polycythemia; Z12.5 Encounter for screening for malignant neoplasm of prostate; E78.5 Hyperlipidemia, unspecified
CPT/HCPCS: 36415; 80053; 80061; 85025; G0103

== ENCOUNTER 2023-02-13 12:47 | Emergency (ER) | payer MEDICARE, SELFPAY ==
[2023-02-13] VITALS (8 sets, daily range): BP systolic 108–144; BP diastolic 68–94; PULSE 70–111; RESP 18–22; TEMP 36.7–36.8; O2SAT 95–98; BMI 35.3
--- NOTE | 2023-02-13 12:59 | ECG_ITS ---
APPROVED REPORT Exam: Resting ECG HR:105 bpm ECG Measurements Heart Rate 105 AXES [place] 159 P 38 QRSd 98 QRS 40 QT 330 T 15 QTc 391 Conclusion SINUS TACHYCARDIA ABNORMAL RHYTHM ECG UNCONFIRMED REPORT Electronically signed by : Monty Genao MD 02/13/2023 17:58:47
--- NOTE | 2023-02-13 13:18 | CT_ITS ---
FINAL REPORT TECHNIQUE: After the administration of oral and intravenous contrast, axial images were obtained through the abdomen and pelvis by computed tomography. The study was performed with techniques to keep radiation dose as low as reasonably achievable, (ALARA). Individual dose reduction techniques using automated exposure control or adjustment of mA and/or kV according to the patient's size were employed. CLINICAL HISTORY: right flank, RUQ and RLQ abd pain COMPARISON: None FINDINGS: Abdomen: The lung bases are clear. The liver parenchyma is homogeneous. The gallbladder is surgically absent. The spleen and adrenals appear unremarkable. There are benign appearing cysts in the kidneys bilaterally, the largest cyst is in the lower pole of the right kidney and measures 4.3 cm in diameter. There are small calcifications scattered in the pancreas, likely secondary to chronic pancreatitis. The aorta is normal in caliber. There is no free fluid or adenopathy. Pelvis: The appendix is not identified. The urinary bladder is unremarkable. There is no free fluid or adenopathy. IMPRESSION: No acute intra-abdominal process. Benign-appearing cysts in the kidneys bilaterally, the largest in the lower pole of the right kidney measuring 4.3 cm. Scattered calcifications are present in the pancreas, likely secondary to chronic pancreatitis. Reviewed, Interpreted and Dictated by Robe Mark MD Transcribed by Noris Olsen Authenticated and [facility]
--- NOTE | 2023-02-13 13:18 | CT_ITS ---
FINAL REPORT TECHNIQUE: The patient was injected with IV contrast. Axial images were obtained through the chest in a PE protocol. 3-D reconstruction images were also performed. Individualized dose reduction techniques using automated exposure control or adjustment of the MA and/or KV according to patient's size were employed. CLINICAL HISTORY: right pleuritic cp, h/o thoracotomy FINDINGS: Mediastinal vasculature is adequately opacified. No pulmonary artery filling defects are identified to suggest PE. There is no aortic dissection. There is no axillary adenopathy. There is no hilar or mediastinal adenopathy. The heart size is normal. There is no pericardial or pleural effusion. There is scar or atelectasis in the upper and lower lobes. There are mild ground-glass opacities which may be due to mild edema or pneumonitis. The gallbladder is absent. There are mild calcifications in the pancreas consistent with chronic pancreatitis. IMPRESSION: No pulmonary embolus or dissection. Ground-glass opacity bilaterally, may be due to edema or pneumonitis. Chronic pancreatitis. Reviewed, Interpreted and Dictated by Robe Mark MD Transcribed by Ghislaine Nesbitt Authenticated and [facility]
--- NOTE | 2023-02-13 13:19 | HMH.EDGENADL ---
Discharge Plan Disposition Patient Disposition: Home, Self-Care Chief Complaint: PAIN Prescriptions Prescriptions: No Action lidocaine (PF) 20 mg/mL (2 %) solution 20 mg IJ ONCE Qty: 1 0RF trazodone 50 mg tablet 50 mg PO lidocaine 5 % adhesive patch,medicated 1 patch TRANSDERMA Patient Comments: APPLY 1 - 2 PATCH(es) TOPICALLY TO THE AFFECTED AREA AND LEAVE IN PLACE FOR 12 HOURS, THEN REMOVE AND LEAVE OFF FOR 12 HOURS -- FOR EXTERNAL USE ONLY-- triamterene-hydrochlorothiazid 37.5-25 mg tablet 1 tab PO Patient Comments: TAKE ONE TABLET BY MOUTH EVERY DAY NEEDED FOR fluid retention meloxicam 7.5 mg tablet 7.5 mg PO DAILY 30 Days Qty: 30 2RF multivitamin 1 EACH tablet 1 each PO DAILY sumatriptan succinate 100 MG tablet 100 mg PO NEEDED PRN (Reason: MIGRAINES) docusate sodium 100 MG capsule 100 mg PO DAILY albuterol sulfate 8.5 GM HFA aerosol inhaler 8.5 g inhalation Q4HP PRN (Reason: Dyspnea) ipratropium bromide 0.5 MG/2.5 ML solution 0.5 mg inhalation QIDP PRN (Reason: COPD) oxycodone 20 MG tablet 20 mg PO Q4HP PRN (Reason: PAIN) fluticasone furoate-vilanterol 1 EACH blister with device 1 inh inhalation DAILY Referrals Follow up/Referrals: Severino Gutierrez MD [Primary Care Provider] - See instructions Clinical Impressions Clinical Impression: Chest pain, pleuritic, Abdominal pain, RUQ, Abdominal pain, RLQ Discharge ED Provider: Adolfo Hewitt General Adult HPI <Adolfo Hewitt MD - Last Filed: 02/13/23 15:33> General Chief complaint: PAIN Stated complaint: R lung pain Dr. Gutierrez sent for possible pneumonia Time Seen by Provider: 02/13/23 13:09 Mode of Arrival: Ambulatory Source of Information: Patient Limitations: No Limitations Description of Symptoms (Recalled from ER Triage Doc. by RN): pt to ed c/o right sided rib pain that started spontaneously, accompanied by mild SOA. pt states symptoms have been persistent since 1130 last night. History of Present Illness HPI narrative: Patient is a 72-year-old male with a history of a thoracotomy and partial lobectomy in 2005 presenting today with right pleuritic chest wall pain right upper quadrant right flank and right lower quadrant abdominal pain. This began several days ago but is been persistent and worsening and is severe at this point. No fevers or chills or cough. No hematuria patient denies any other symptoms. Related Data Home Medications Medication Instructions Recorded Confirmed albuterol sulfate 90 mcg/actuation 8.5 g inhalation Q4HP PRN Dyspnea 09/02/19 12/25/22 aerosol inhaler docusate sodium 100 mg capsule 100 mg PO DAILY CONSTIPATION 09/02/19 12/25/22 fluticasone furoate 100 1 inh inhalation DAILY COPD 09/02/19 12/25/22 mcg-vilanterol 25 mcg/dose inhalation powder ipratropium bromide 0.02 % 0.5 mg inhalation QIDP PRN COPD 09/02/19 12/25/22 solution for inhalation multivitamin 1 each PO DAILY Supplement 09/02/19 12/25/22 oxycodone 20 mg tablet 20 mg PO Q4HP PRN PAIN 09/02/19 12/25/22 sumatriptan succinate 100 mg tablet 100 mg PO NEEDED PRN MIGRAINES 09/02/19 12/25/22 lidocaine 5 % topical patch 1 patch transdermal 05/14/21 12/25/22 trazodone 50 mg tablet 50 mg PO 05/14/21 12/25/22 triamterene 37.5 1 tab PO 05/14/21 12/25/22 mg-hydrochlorothiazide 25 mg tablet Previous Rx's Medication Instructions Recorded meloxicam 7.5 mg tablet 7.5 mg PO DAILY 30 days #30 tabs 05/14/21 Allergies Allergy/AdvReac Type Severity Reaction Status Date / Time No Known Drug Allergies Allergy Unknown Verified 12/25/22 09:11 [NKDA] [facility] <J Lamin Hewitt MD - Last Filed: 02/13/23 15:33> [facility] Disclaimer: The information contained in this section may have been updated after the patient was seen, as this information can be updated by other users. Social History (Reviewed 12/25/22 @ 09:12 by Mateusz Ribera [facility]) Smoking Status: Never smo
[2023-02-13 14:15] LABS: Chloride 103 mmol/L (98-107)
[2023-02-13 14:16] LABS: Potassium 4.4 mmoL/L (3.5-5.1); Sodium 140 mmol/L (136-145)
[2023-02-13 14:18] LABS: Alanine Aminotransferase 24 U/L (12-78); Albumin Level 4.4 g/dl (3.5-5.0); Albumin/Globulin Ratio 1.7 (1.1-1.8); Alkaline Phosphatase 96 U/L (38-126); Anion Gap 11.4 mEq/L (5-15); Aspartate Amino Transferase 38 U/L (17-59); Bilirubin,Total 0.3 mg/dl (0.2-1.3); Blood Urea Nitrogen 11 mg/dl (9-20); Carbon Dioxide 30 mmol/L (22.0-30.0); Creatinine Clearance Estimated 107 mL/min (50-200); Estimated Glomerular Filt Rate 74 ml/min (>60); GFR (African American) 89 ML/MIN (>60); Globulin 2.6 g/dL (1.3-3.2)
[2023-02-13 14:19] LABS: Calcium 8.3 mg/dl (8.4-10.2); Glucose 104 mg/dl (74-100)
[2023-02-13 14:39] LABS: Troponin I < 0.01 ng/ml (0.00-0.034)
[2023-02-13 14:55] LABS: Basophils % 0.2 % (0.1-2.0); Eosinophils # 0.1 K/mm3 (0.0-0.4); Eosinophils % 1.1 % (0.1-12.0); Hematocrit 44.8 % (42.0-52.0); Hemoglobin 15.4 g/dL (14.1-18.0); Lymphocytes # 1.5 K/mm3 (0.7-4.5); Mean Corpuscular HGB Conc 34.3 g/dL (31.8-35.4); Mean Corpuscular Hemoglobin 30.2 pg (27.0-31.2); Mean Corpuscular Volume 88.2 fl (80-94); Mean Platelet Volume 8.3 fl (7.4-10.4); Monocytes # 0.4 K/mm3 (0.1-1.0); Monocytes % 5.4 % (1.7-9.3); Neutrophils # 4.9 K/mm3 (1.8-7.8); Neutrophils % 71.3 % (37.0-80.0); Platelet Count 230 K/mm3 (142-424); Red Blood Count 5.08 M/mm3 (4.60-6.20); Red Cell Distribution Width 13.5 % (11.5-17.5); White Blood Count 6.9 K/mm3 (4.8-10.8)
[2023-02-13 16:05] LABS: Microscopic, Urine URINE MICROSCOPIC (MICROSCOPIC)
[2023-02-13 16:11] LABS: Appearance,Urine CLEAR (Clear); Bilirubin,Urine Negative (Negative); Blood, Urine Negative (Negative); Color,Urine YELLOW (Yellow); Glucose,Urine (UA) Negative (Negative); Ketones,Urine Negative (Negative); Leukocyte Esterase,Urine Negative (Negative); Nitrate,Urine Negative (Negative); PH,Urine 5.5 (5.0-8.5); Protein,Urine Negative (Negative); Urobilinogen,Urine 0.2 EU/dl (0.2)
[2023-02-13 16:26] LABS: RBC,Urine Occasional #/hpf (0-3); Squamous Epithelial Cell,Urine Occasional #/hpf (0-5)
== END 2023-02-13 16:41 | disposition home or self-care (01) ==
PROVIDERS: Emergency Provider Student in an Organized Health Care Education/Training Program; PCP Internal Medicine
DX: R09.1 Pleurisy (principal); R00.0 Tachycardia, unspecified; R10.11 Right upper quadrant pain; R10.31 Right lower quadrant pain; K86.1 Other chronic pancreatitis
CPT/HCPCS: 71275; 74177; 80053; 81001; 84484; 85025; 93005; 96361; 96374; 96375; 99285; J2405; Q9967

== ENCOUNTER 2023-08-25 16:04 | Outpatient (CLI) | payer MEDICARE, SELFPAY ==
--- NOTE | 2023-08-25 16:11 | XR_ITS ---
FINAL REPORT CLINICAL HISTORY: Pleuritic right chest pain COMPARISON: 03/12/2022 FINDINGS: Two views of the chest were obtained. The heart size and pulmonary vascularity are within normal limits. The mediastinum is normal. Mild left base opacities likely represent atelectasis or scarring. There is no pneumothorax. The bony thorax is intact. IMPRESSION: Mild left base opacities, likely atelectasis or scarring. Reviewed, Interpreted and Dictated by Carlos Bullock III, MD Transcribed by Rhonda Siegel Authenticated and [facility]
== END 2023-08-25 23:59 | disposition home or self-care (01) ==
LOC: RAD 16:09
PROVIDERS: PCP Internal Medicine; Visit Provider Internal Medicine
DX: R09.1 Pleurisy (principal)
CPT/HCPCS: 71046

== ENCOUNTER 2023-09-02 07:26 | Outpatient (CLI) | payer MEDICARE, SELFPAY ==
--- NOTE | 2023-09-02 07:26 | FL_ITS ---
FINAL REPORT CLINICAL HISTORY: dysphagia 1805.37 dap 1.27 fluoro time FINDINGS: BARIUM SWALLOW HISTORY: Difficulty swallowing. TECHNIQUE: The patient ingested barium contrast. Spot and overhead films were performed. A total of 62 images were saved. FINDINGS: There is a small sliding-type hiatal hernia. There is narrowing of the esophagus just above the hiatal hernia. 13 mm barium tablet is delayed above this area of narrowing, but does eventually pass during the examination. There is no gastroesophageal reflux demonstrated. Esophageal dysmotility is present. No changes of esophagitis are evident. FLUOROSCOPY TIME: 1 minute 27 seconds Radiation exposure in Total DAP: 1805.37 uGym2 IMPRESSION: Small hiatal hernia. Narrowing of the distal esophagus just above the hiatal hernia. 13 mm barium tablet is delayed in this region. Recommend correlation with upper endoscopy. Esophageal dysmotility. Reviewed, Interpreted and Dictated by Carlos Bullock III, MD Transcribed by Jackelyn Da Silva PA-C Authenticated and [facility]
[2023-09-02] MEDS: BARIUM SULFATE(E-Z-AC);750ML BOTTLE 750 ML PO (08:16)
[2023-09-02] MEDS: E-Z-GASII EFFERVESCENT GRANULES;1PK 1 EACH PO (08:16)
[2023-09-02] MEDS: BARIUM SULFATE (E-Z-HD 340GM);135ML BOTTLE 135 ML PO (08:16)
== END 2023-09-02 23:59 | disposition home or self-care (01) ==
PROVIDERS: PCP Internal Medicine; Visit Provider Student in an Organized Health Care Education/Training Program
DX: R13.10 Dysphagia, unspecified (principal); R49.0 Dysphonia; H91.90 Unspecified hearing loss, unspecified ear
CPT/HCPCS: 74220

== ENCOUNTER 2023-09-17 10:02 | Outpatient (CLI) | payer MEDICARE, SELFPAY ==
--- NOTE | 2023-09-17 10:02 | CT_ITS ---
FINAL REPORT TECHNIQUE: Axial images through the thoracic spine were performed. Sagittal and coronal reconstruction images were performed. This study was performed with techniques to keep radiation doses as low as reasonably achievable, (ALARA). Individualized dose reduction techniques using automated exposure control or adjustment of mA and/or kV according to the patient's size were employed. CLINICAL HISTORY: .right thoracic back pain COMPARISON: None FINDINGS: CT THORACIC SPINE WITH AND WITHOUT CONTRAST: Thoracic kyphosis is present, with mild degenerative disc disease in the lower thoracic spine. No evidence of canal stenosis is noted in the thoracic spine. There is mild facet arthropathy in the lower thoracic spine. There is calcification of the hypertrophied ligamentum flavum at the T4-5 level without evidence of canal stenosis. No paraspinal mass or abscess is present. IMPRESSION: Mild degenerative change is present without bone destruction, fracture, or bony canal stenosis. Reviewed, Interpreted and Dictated by Maggie Philippe MD Transcribed by Norsi Olsen Authenticated and [facility]
--- NOTE | 2023-09-17 10:02 | CT_ITS ---
FINAL REPORT CLINICAL HISTORY: Right posterior chest pain FINDINGS: CT CHEST without and with contrast COMPARISON: 02/13/2023 TECHNIQUE: Axial CT without and with IV contrast administration. FINDINGS: No acute lung disease is present . Curvilinear densities of the periphery of the right lower lobe are noted compatible with scarring. There is presumed underlying postoperative change. No pleural or pericardial effusion is seen . No adenopathy or mass lesion is present . No chest wall mass is seen. Old fracture/postoperative change is seen involving the posterior right 6th and 7th ribs. IMPRESSION: 1. Chronic changes. No evidence of mass or acute inflammatory process. This study was performed using automated techniques to achieve radiation exposure as low as reasonably achievable Authenticated and [facility]
[2023-09-17 10:30] LABS: Blood Urea Nitrogen 10 mg/dl (9-20); Estimated Glomerular Filt Rate 83 ml/min (>60); GFR (African American) 100 ML/MIN (>60)
== END 2023-09-17 23:59 | disposition home or self-care (01) ==
PROVIDERS: PCP Internal Medicine; Visit Provider Internal Medicine
DX: R07.9 Chest pain, unspecified (principal); M54.6 Pain in thoracic spine
CPT/HCPCS: 36415; 71270; 72130; 82565; 84520; Q9967

== ENCOUNTER 2023-09-29 09:13 | Day surgery (SDC) | payer MEDICARE, SELFPAY ==
[2023-09-25 14:34] VITALS: BMI 33.7
--- NOTE | 2023-09-29 09:44 | HMH.SCOPE ---
Procedure: Date: 09/29/23 Patient Date of :: 1950 Procedure Performed:: Esophagogastroduodenoscopy with biopsy Colonoscopy with polypectomy Indications:: Screening Dysphagia Note: Recent barium swallow revealed a small sliding hiatal hernia, dysmotility of the esophagus, and narrowing of the distal esophagus. Performing Provider:: Reynold Alanis MD Referring Provider:: . Sedation:: Monitored anesthesia care Procedure:: After informed consent was obtained the patient was taken to the endoscopy suite. Sedation ensued after the patient was transferred to the left lateral decubitus position. Pulse, blood pressure, and oxygen saturation were monitored throughout the procedure. The endoscope was advanced beyond the duodenal bulb. Retroflexion within the gastric lumen was accomplished. The gastroscope was carefully removed. Digital rectal exam revealed no significant abnormality. The colonoscope was placed in position. The entire colon was evaluated. The colonoscope was carefully removed and the patient was transferred to recovery in stable condition. Please see findings and specimens below for detail. Findings:: Tortuous esophagus Esophageal spasticity Bile reflux Mild patchy gastritis Small sliding hiatal hernia Bowel preparation poor for colonoscopy Inflamed polyp at 60 cm Specimens:: Antral biopsy Inflamed colon polyp at 60 cm (hot snare) Recommendations:: Proton pump inhibition Consider modified barium swallow Consider esophageal manometry May ultimately require repeat esophagogastroduodenoscopy with dilatation; however, this would likely result in transient effects (may defer to gastroenterology service (see below)) Short-term repeat colonoscopy with extended/alternate bowel preparation warranted (3-6 months). Consider gastroenterology consultation secondary to likely chronic constipation/irritable bowel syndrome Likely defer repeat colonoscopy to the gastroenterology service Complications:: No immediate Estimated blood obtained (mL): 1 Colonoscopy Component Colonoscopy Component Was a colonoscopy performed during today's procedure?: Yes Recommended follow up colonoscopy of at least 10 years?: No If no, follow up colonoscopy recommended in ___ years?: (See above) Reason for not recommending >/= 10 yr follow-up interval?: (See above)
[2023-09-29 09:50] VITALS: BP 132/79; PULSE 93; RESP 18; TEMP 36.2; O2SAT 94
[2023-09-29] MEDS: LACTATED RINGERS 1000ML 1,000 ML 100 ML IV (09:57)
[2023-09-29 10:06] VITALS: O2SAT 94
--- NOTE | 2023-09-29 10:33 | P.PNANES_ITS ---
[facility] Disclaimer: The information contained in this section may have been updated after the patient was seen, as this information can be updated by other users. Medical History (Updated 09/29/23 @ 09:56 by Faina Santacruz RN) COPD (chronic obstructive pulmonary disease) History of wrist fracture History of trigger finger Thoracotomy scar of right chest Personal history of kidney stones Hoarseness Hiatal hernia Hearing loss Dysphagia Dysphonia Hearing loss Surgical History (Updated 09/29/23 @ 09:35 by Rene Fragoso) History of dental surgery Previous back surgery Hx laparoscopic cholecystectomy History of cardiac cath H/O repair of right rotator cuff History of sphincterotomy of sphincter of Oddi H/O vasectomy Family History Other No significant family history Social History Smoking Status: Never smoker alcohol intake: never substance use type: denies use current occupational status: retired Travel in the last 8 weeks: None household members: none housing: house current occupational exposures/hazards: Yes caffeine: Yes [facility] Anesthesia Checklist Patient Identification Patient Identification: Arm Band Structural Data Admitted From: Home Planned Operative Procedure/s: EGD/Colonoscopy Consent for Planned Operative Procedure(s) Verified: Yes Verified Documents: Surgical Consent and History and Physical NPO Status Verified Time NPO: 00:00 Additional verifications Anesthesia Reactions: No Hx Blood Transfusions: No Airway Assessment Mallampati Score:: Class II C-Spine Mobility Assessed: Yes TMJ Mobility Assessed: Yes Dentition: Poor Dentition Neurological Assessment Level of Consciousness: Awake, Alert and Appropriate Anesthesia Plan Anesthesia Risk discussed: Yes Anesthesia Plan: Verified ASA Class: II Anesthesia Type: MAC
[2023-09-29 10:50] VITALS: BP 92/57; PULSE 76; RESP 14; TEMP 36.5; O2SAT 93
[2023-09-29 11:00] VITALS: BP 112/63; PULSE 84; RESP 16; O2SAT 96
[2023-09-29 11:10] VITALS: BP 111/67; PULSE 77; RESP 16; O2SAT 96
== END 2023-09-29 11:26 | disposition home or self-care (01) ==
PROVIDERS: PCP Internal Medicine; Visit Provider Surgery
PROC: 0DJ08ZZ Inspection of Upper Intestinal Tract, Via Natural or Artificial Opening Endoscopic (ICD-10-PCS; CPT 43235; principal; 2023-09-29 10:30)
DX: Z12.11 Encounter for screening for malignant neoplasm of colon (principal); Z86.010 Personal history of colon polyps; K63.5 Polyp of colon; R13.10 Dysphagia, unspecified; K21.9 Gastro-esophageal reflux disease without esophagitis; K44.9 Diaphragmatic hernia without obstruction or gangrene; K29.70 Gastritis, unspecified, without bleeding
CPT/HCPCS: 43239; 45385; 88305; J2704; J7120

== ENCOUNTER 2024-01-05 11:52 | Outpatient (CLI) | payer MEDICARE, SELFPAY ==
--- NOTE | 2024-01-05 11:55 | XR_ITS ---
FINAL REPORT CLINICAL HISTORY: Cough, green sputum, shortness of breath COMPARISON: 08/25/2023 FINDINGS: Two views of the chest were obtained. The heart size and pulmonary vascularity are within normal limits. The mediastinum is normal. There are mild bibasilar opacities which favor atelectasis or scarring. There is no pneumothorax. There are postoperative changes of the right thorax. IMPRESSION: Bibasilar opacities, favor atelectasis or scarring. Reviewed, Interpreted and Dictated by Carlos Bullock III, MD Transcribed by Yolis Koch Authenticated and [facility]
== END 2024-01-05 23:59 | disposition home or self-care (01) ==
LOC: RAD 11:52
PROVIDERS: PCP Internal Medicine; Visit Provider Internal Medicine
DX: J44.1 Chronic obstructive pulmonary disease with (acute) exacerbation (principal); R05.8 Other specified cough
CPT/HCPCS: 71046

== ENCOUNTER 2024-03-03 09:53 | Outpatient (CLI) | payer MEDICARE, SELFPAY ==
--- NOTE | 2024-03-03 09:59 | XR_ITS ---
FINAL REPORT TECHNIQUE: Chest PA & Lateral CLINICAL HISTORY: Shortness of breath, tachycardia COMPARISON: 01/05/2024 FINDINGS: 2 views of the chest were performed. The lungs are underinflated. The heart size is normal. The mediastinum is within normal limits. There is no acute cardiopulmonary process. There are no pleural effusions. There is no pneumothorax. There are surgical clips present in the right upper hemithorax, as well as a linear scar present in the right lung base. The bony thorax appears intact. IMPRESSION: No acute cardiopulmonary process. Reviewed, Interpreted and Dictated by Robe Mark MD Transcribed by Noris Olsen Authenticated and [facility]
== END 2024-03-03 23:59 | disposition home or self-care (01) ==
LOC: RAD 09:56
PROVIDERS: PCP Internal Medicine; Visit Provider Internal Medicine
DX: J44.1 Chronic obstructive pulmonary disease with (acute) exacerbation (principal); R00.0 Tachycardia, unspecified
CPT/HCPCS: 71046

== ENCOUNTER 2024-03-17 08:45 | Outpatient (CLI) | payer MEDICARE, SELFPAY ==
[2024-03-17 16:42] LABS: Basophils % 0.3 % (0.1-2.0); Eosinophils # 0.2 K/mm3 (0.0-0.4); Eosinophils % 2.2 % (0.1-12.0); Hematocrit 48.6 % (42.0-52.0); Lymphocytes # 1.4 K/mm3 (0.7-4.5); Lymphocytes % 15.5 % (10-50); Mean Corpuscular HGB Conc 32.9 g/dL (31.8-35.4); Mean Corpuscular Hemoglobin 29.4 pg (27.0-31.2); Mean Corpuscular Volume 89.3 fl (80-94); Mean Platelet Volume 9.1 fl (7.4-10.4); Monocytes # 0.7 K/mm3 (0.1-1.0); Monocytes % 8.3 % (1.7-9.3); Neutrophils # 6.4 K/mm3 (1.8-7.8); Neutrophils % 73.1 % (37.0-80.0); Platelet Count 209 K/mm3 (142-424); Red Blood Count 5.44 M/mm3 (4.60-6.20); Red Cell Distribution Width 13.1 % (11.5-17.5); White Blood Count 8.7 K/mm3 (4.8-10.8)
[2024-03-17 17:33] LABS: Alanine Aminotransferase 22 U/L (12-78); Albumin Level 4.2 g/dl (3.5-5.0); Albumin/Globulin Ratio 2.1 (1.1-1.8); Alkaline Phosphatase 90 U/L (38-126); Anion Gap 17.6 mEq/L (5-15); Aspartate Amino Transferase 25 U/L (17-59); Bilirubin,Total 0.3 mg/dl (0.2-1.3); Blood Urea Nitrogen 11 mg/dl (9-20); Calcium 8.7 mg/dl (8.4-10.2); Carbon Dioxide 24 mmol/L (22.0-30.0); Chloride 102 mmol/L (98-107); Chol/HDL Ratio 5.8 (1-3.5); Cholesterol 156 mg/dl (140-200); Estimated Glomerular Filt Rate 95 ml/min (>60); GFR (African American) 115 ML/MIN (>60); Glucose 114 mg/dl (74-100); HDL Cholesterol 27 mg/dl (40-60); Potassium 3.6 mmoL/L (3.5-5.1); Sodium 140 mmol/L (136-145); Total Protein,Serum 6.2 g/dl (6.3-8.2); Triglycerides 174 mg/dl (30-150); VLDL Cholesterol 35 mg/dL (0-40)
[2024-03-17 17:45] LABS: Direct LDL Cholesterol 102.69 mg/dL (100-129); Free T4 (Free Thyroxine) 0.82 ng/dl (0.78-2.19)
[2024-03-17 18:01] LABS: Prostate Specific Ag Screen 0.8 ng/ml (0.0-4.0); Thyroid Stimulating Hormone 2.44 uIU/mL (0.465-4.68)
== END 2024-03-17 23:59 | disposition home or self-care (01) ==
LOC: LAB.DROPOF 03-18 08:22
PROVIDERS: PCP Internal Medicine; Visit Provider Internal Medicine
DX: R00.0 Tachycardia, unspecified (principal); J44.9 Chronic obstructive pulmonary disease, unspecified; E78.5 Hyperlipidemia, unspecified; Z12.5 Encounter for screening for malignant neoplasm of prostate
CPT/HCPCS: 80053; 80061; 84439; 84443; 85025; G0103

== ENCOUNTER 2024-03-25 08:12 | Outpatient (CLI) | payer MEDICARE, SELFPAY ==
--- NOTE | 2024-03-25 08:18 | CA_ITS ---
APPROVED REPORT EXAM: Comprehensive 2D, Doppler, and color-flow Echocardiogram [employer]: Gayle Katz RDCS Ht: 5 ft 10 in Wt: 246lbs BSA: 2.28 BP: 116/84 mmHg Indications: COPD, Shortness of Breath, Hyperlipidemia, ex smoker, tachycardia M-Mode Dimensions RVDd 2.16 cm (0.9-2.6) LA Diam 5.23 cm (1.9-4.0) LVDd 5.02 cm (3.5-5.7) LVDs 3.70 cm (3.5-5.7) IVSd 0.94 cm (0.6-1.1) PWd 0.84 cm (0.6-1.1) EF (Teich) 51.30% FS 26.30% EDV (Teich) 119.30 mL ESV (Teich) 58.10 mL LV Diastology E Decel Time 150 (160-240 msec) E/A Ratio 0.60 Mitral Valve MV E Max Dimitris. 47.0 (40-130 cm/s) MV A Velocity 78.0 (40-130 cm/s) E/A Ratio 0.60 MV PHT 44.0 ms Left Ventricle The left ventricle is normal size. The left ventricular systolic function is normal. The left ventricular ejection fraction is within the normal range. There is normal left ventricular wall thickness. There is normal LV segmental wall motion. The left ventricular diastolic function is normal. LVEF is 60%. Right Ventricle The right ventricle is normal size. The right ventricular systolic function is normal. Atria The left atrium size is normal. The right atrium size is normal. There is no Doppler evidence of interatrial shunt. Aortic Valve The aortic valve opens well. There is no aortic valvular stenosis. No aortic regurgitation is present. Mitral Valve The mitral valve is normal in structure. No evidence of mitral valve stenosis. There is no mitral valve regurgitation noted. Tricuspid Valve Tricuspid valve is grossly normal in structure and function. Trace tricuspid regurgitation. There is insufficient TR jet to estimate RVSP. Pulmonic Valve The pulmonary valve is normal in structure. Trace pulmonic regurgitation. Great Vessels The aortic root is normal in size. The ascending aorta is normal in size. IVC is normal in size and collapses >50% with inspiration. Pericardium There is no pericardial effusion. Other Information Study Quality: Fair Conclusion Normal biventricular systolic function. No significant valvular stenosis or regurgitation. Electronically signed by : Gabbi Hansen MD 04/03/2024 20:15:48
== END 2024-03-25 23:59 | disposition home or self-care (01) ==
LOC: RT 08:14
PROVIDERS: PCP Internal Medicine; Visit Provider Internal Medicine
DX: R00.0 Tachycardia, unspecified (principal); R06.02 Shortness of breath; J44.9 Chronic obstructive pulmonary disease, unspecified; E78.5 Hyperlipidemia, unspecified; Z87.891 Personal history of nicotine dependence
CPT/HCPCS: 93306

== ENCOUNTER 2024-05-16 08:47 | Outpatient (CLI) | payer MEDICARE, SELFPAY | END 2024-05-16 23:59 | disposition home or self-care (01) | LOC: RT 08:47 | PROVIDERS: PCP Internal Medicine; Visit Provider Internal Medicine | DX: R00.0 Tachycardia, unspecified (principal) | CPT/HCPCS: 93225; 93227 ==

== ENCOUNTER 2024-08-16 13:06 | Outpatient (CLI) | payer MEDICARE, SELFPAY ==
[2024-08-16 12:56] LABS: Amphetamine/Metha Screen,Urine Negative ng/ml (<1000); Barbiturates Screen,Urine Negative ng/ml (<200)
[2024-08-16 12:57] LABS: Benzodiazepines Screen,Urine Negative ng/ml (<200)
[2024-08-16 12:58] LABS: Cannabinoid Screen,Urine Negative ng/ml (<50); Cocaine Screen,Urine Negative ng/ml (<300)
[2024-08-16 12:59] LABS: Methadone Screen,Urine Negative ng/ml (<300)
[2024-08-16 13:00] LABS: Opiate Screen,Urine Positive ng/ml (<300); Phencyclidine Screen,Urine Negative ng/ml (<25)
== END 2024-08-16 23:59 | disposition home or self-care (01) ==
LOC: LAB.DROPOF 13:07
PROVIDERS: PCP Internal Medicine; Visit Provider Internal Medicine
DX: F11.90 Opioid use, unspecified, uncomplicated (principal)
CPT/HCPCS: 80307

== ENCOUNTER 2024-09-06 12:26 | Outpatient (CLI) | payer MEDICARE, SELFPAY ==
--- NOTE | 2024-09-06 12:29 | MR_ITS ---
FINAL REPORT TECHNIQUE: Multiplanar MR without contrast CLINICAL HISTORY: LUMBAR RADICULOPATHY pain with left leg numbness x 1 year COMPARISON: 01/02/2017 FINDINGS: Sagittal images show normal vertebral height. There is minimal retrolisthesis of L2 on 3, stable from prior. Marrow signal pattern is unremarkable. L1-2: Unremarkable L2-3: Mild annular disc bulge. Borderline neuroforaminal narrowing. No central canal stenosis. L3-4: Minimal annular disc bulge with mild bilateral neuroforaminal narrowing. L4-5: Mild annular disc bulge with moderate facet arthropathy. Mild central canal stenosis and moderate neuroforaminal narrowing. Neuroforaminal narrowing is slightly worse from previous. L5-S1: Mild annular disc bulge, asymmetric to the right. Moderate bilateral neuroforaminal narrowing, greater on right. Findings are stable from prior. IMPRESSION: Degenerative changes lower lumbar spine, most pronounced at L4-5 which is slightly worse than previous. Reviewed, Interpreted and Dictated by Maggie Philippe MD Transcribed by Ghislaine Nesbitt Authenticated and [facility]
--- OUTSIDE RECORDS SUMMARY | 2024-09-06 12:29 | XMS_ITS | Patient Health Record ---
Author Organization [facility]Al[facility] Lam MD Address [address] [place] [address] Care Team Providers Care Chemical Dependency Attendant Name Role Phone Alfonso Lam Unavailable [phone] Reason For Referral No Information Medications Medication SIG (Take, Route, Frequency, Duration) Notes Start Date End Date Status Ativan 1 MG 1 tablet 1 1/2 hr pr ior to test Orally qd; Duration: 1 dose 09/21/2013 Active Problems Problem Type SNOMED Code ICD Code Onset Dates Problem Status W/U Status Risk Notes Problem Obstructive slee p apnea (327.23) Active confirmed Problem Laryngopharyngeal reflux (215214336) Laryngopharyngeal reflux (LPR) (478.79) Active confirmed Plan Of Treatment No Information Insurance Providers Payer Name Payer Address Payer Phone Subscriber Number Group Number Insured Name Patient Relationship to Insured Coverage Start Date Coverage End Date MEDICARE [employer] [address] [place] [address] [phone] [id number] Sims, Jerrell Self - patient is the insured [facility] [address] [place] [address] [id number] Tushar Jerrell Self - patient is the insured Medical (General) History Surgical History Surgery Date(Month/Year) Joint/Bone Urinary/Kidney
== END 2024-09-06 23:59 | disposition home or self-care (01) ==
PROVIDERS: PCP Internal Medicine; Visit Provider Orthopaedic Surgery
DX: M47.26 Other spondylosis with radiculopathy, lumbar region (principal)
CPT/HCPCS: 72148

== ENCOUNTER 2024-12-15 09:46 | Outpatient (CLI) | payer MEDICARE, SELFPAY ==
--- NOTE | 2024-12-15 09:49 | XR_ITS ---
FINAL REPORT CLINICAL HISTORY: Right chest pain post lifting 3 weeks ago. pain when breathing COMPARISON: 08/13/2018 FINDINGS: No acute pulmonary density is evident. Postoperative change in the right upper lobe is similar to prior. There is no evidence of effusion or other pleural disease. The mediastinum has a normal appearance. No obvious rib fracture identified. The cardiac silhouette is unremarkable. IMPRESSION: No acute process. Reviewed, Interpreted and Dictated by Maggie Philippe MD Transcribed by Ghislaine Nesbitt Authenticated and [facility][1]
--- OUTSIDE RECORDS SUMMARY | 2024-12-15 09:53 | XMS_ITS | Clinical Summary ---
Author Organization [facility] Address [address] [place] [address] Care Team Providers Care Home Care Attendant Name Role Phone Unavailable Primary Care Provider Unavailabl e Social History Tobacco Use Types Packs/Day Years Used Date Smoking Tobacco: Never Assessed Abuse Screen Answer Date Recorded Unsafe at Home or Work/School Not on file Feels Threatened by Someone? Not on file 10/2022 Does Anyone Keep You from Co ntacting Others or Doint Things Outside the Home? Not on file 12/01/2022 Physical Sign of Abuse Present Not on file 1 Housing Stability Answer Date Recorded Current Living Arrangements Not on file 10/2022 Potentially Unsafe Housing Conditions Not on lenny e 12/01/2022 Family and Community Support Answer Holden e Recorded Help with Day-to-Day Activities Not on file 12/01/2022 Lonely or Isolated Not on file 12/01/2022 Employment Answer Date Recorded Do you want help finding or keeping work or a maura b? Not on file 12/01/2022 Disabilities Answer Date Recorded Concentrating, Remembering, or Making Decisions Difficulty Not on file 12/01/2022 Doing Errands Independently Difficulty Not on fi le 12/01/2022 Education Answer Date Recorded Help with school or training? Not on file Preferred Language Not on file 12/01/2022 Sex and Gender Information Value Date Recorded Sex Assigned at Not on file Legal Sex Male 10:14 AM EDT Gender Identity Not on file Sexual Orientation Not on file Last Filed Vital Signs Vital Sign Reading Time Taken Comments Blood Pressure 104/66 06/20/2013 11:17 AM EDT Pulse 92 06/20/2013 11:17 AM EDT Temperature 36.7 C (98 F) 06/20/2013 11:17 AM EDT Respiratory Rate 16 06/20/2013 11:17 AM EDT Oxygen Saturation 98% 06/20/2013 11:17 AM EDT Inhaled Oxygen Concentration - - Weight 107 kg (235 lb 0.2 oz) 06/20/2013 11:17 A M EDT Height 172.7 cm (5' 8 ) 06/20/2013 11:17 AM EDT Body Mass Index 35.73 06/20/2013 11:17 AM EDT Plan of Treatment Health Maintenance Due Date Last Done Comments ANNUAL PHYSICAL 1950 HEPATITIS C SCREENING 1950 TDAP/TD VACCINES (1 - Tdap) 07/29/1970 COLOGUARD 07/29/1996 COLON CANCER SCREENING 5 YEAR SIGMOIDOSCOPY 07/29/1996 COLONOSCOPY 07/29/1996 COLORECTAL CANCER SCREENING 07/29/1996 CT COLONOGRAPHY 07/29/1996 FECAL OCCULT BLOOD TEST 07/29/1996 FIT Testing (1 year) 07/29/1996 Pneumococcal Vaccine 50+ (1 of 1 - PCV) 07/29/2001 ZOSTER VACCINE (1 of 2) 07/29/2001 AAA SCREEN ONCE 07/29/2016 INFLUENZA VACCINE 09/23/2024 COVID-19 Vaccine ( - season) 2024
== END 2024-12-15 23:59 | disposition home or self-care (01) ==
LOC: RAD 09:47
PROVIDERS: PCP Internal Medicine; Visit Provider Internal Medicine
DX: R07.1 Chest pain on breathing (principal); J44.9 Chronic obstructive pulmonary disease, unspecified; Z98.890 Other specified postprocedural states; X50.9XXA Other and unspecified overexertion or strenuous movements or postures, initial encounter
CPT/HCPCS: 71046